=== PATIENT | female | born 1945 | race African-American/Black ===

== ENCOUNTER 2017-12-26 09:04 | Outpatient (CLI) | payer MEDICARE ==
--- NOTE | 2017-12-26 10:48 | ULT ---
THYROID SONOGRAM: History: Thyrotoxicosis. FINDINGS: Right thyroid lobe measures up to 3.9 cm and contains multiple heterogeneous solid and cystic nodules . Largest is at the medial aspect of the superior pole measuring up to 1.2 x 0.7 cm greatest diameter . Isthmus is 0.2 cm. Left thyroid lobe is 3.4 cm in length and also contains smaller solid and cystic nodules. The largest is a 0.6 cm nodule at the central portion. IMPRESSION: Multinodular thyroid gland without enlargement. No dominant aggressive lesion is evident. POS: [facility]
== END 2017-12-26 09:05 | disposition home or self-care (01) ==
LOC: NAV ULT 09:04
PROVIDERS: ATTEND Internal Medicine
DX: E05.90 Thyrotoxicosis, unspecified without thyrotoxic crisis or storm (principal); E04.2 Nontoxic multinodular goiter
CPT/HCPCS: 76536

== ENCOUNTER 2018-03-07 11:13 | Outpatient (CLI) | payer MEDICARE ==
--- NOTE | 2018-03-07 11:49 | RAD ---
RIGHT HAND 3 VIEWS: HISTORY: Pain in the right thumb and right wrist. FINDINGS: Comparison is made with the exam of 07/09/13. 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 There are degenerative alvarado ges in the 2nd MCP joint again seen. No fracture or dislocation is identified. POS: [facility]
== END 2018-03-07 11:14 | disposition home or self-care (01) ==
LOC: NAV RAD 11:13
PROVIDERS: ATTEND Internal Medicine
DX: M79.641 Pain in right hand (principal)

== ENCOUNTER 2020-03-26 12:03 | Emergency (ER) | payer MEDICARE, OTHER ==
[2020-03-27 12:42] LABS: SARS-CoV-2 MS2 Positive; SARS-CoV-2 N Gene Negative; SARS-CoV-2 S Gene Negative; SARS-CoV-2 by NAA Not Detected (NotDetected); SARS-CoV-2 orf1ab Negative
== END 2020-03-26 12:25 | disposition home or self-care (01) ==
LOC: NAV ERS 12:03
DX: Z20.828 Contact with and (suspected) exposure to other viral communicable diseases (principal); I10 Essential (primary) hypertension; F32.9 Major depressive disorder, single episode, unspecified; Z79.899 Other long term (current) drug therapy
CPT/HCPCS: 87635; 99283; U0003

== ENCOUNTER 2025-02-12 15:12 | Emergency (ER) | payer MEDICARE | END 2025-02-12 19:35 | LOC: NAV ERS 15:12 | DX: S00.83XA Contusion of other part of head, initial encounter (principal); J32.9 Chronic sinusitis, unspecified; I10 Essential (primary) hypertension; Z79.899 Other long term (current) drug therapy; W01.0XXA Fall on same level from slipping, tripping and stumbling without subsequent striking against object, initial encounter | CPT/HCPCS: 70450; 72125 ==